=== PATIENT | female | born 1995 | race Caucasian/White ===

== ENCOUNTER 2019-11-19 00:49 | Inpatient (IN) ==
[2019-11-19] MEDS ORDERED: Lidocaine 1% 20 ML MDV ONE (01:00)
[2019-11-19] MEDS ORDERED: Acetaminophen 325 MG TABLET PO PRN (01:10)
[2019-11-19] MEDS ORDERED: Lidocaine/EPI 1:200k 1% PF 10 ML VIAL INFILT ONE (01:10)
[2019-11-19] MEDS ORDERED: Benzocaine/Menthol 56 GM AEROSOL SPRAY TP PRN (01:10)
[2019-11-19] MEDS ORDERED: *HR* Oxytocin 10 UNIT/ML VIAL IM ONE ×2 (01:10→13:22)
[2019-11-19 04:05] LABS: Amphetamine Screen,Urine Negative ng/mL (Cutoff=1000); Barbiturate Screen,Urine Negative ng/mL (Cutoff=200); Benzodiazepines Screen,Urine Negative ng/mL (Cutoff=200); Cannabinoid Screen,Urine Negative ng/mL (Cutoff = 50); Cocaine Screen,Urine Negative ng/mL (Cutoff= 300); Opiate Screen,Urine Negative ng/mL (Cutoff=300); Phencyclidine Screen,Urine Negative ng/mL (Cutoff=25)
[2019-11-19] MEDS: Ibuprofen 600 MG TABLET PO PRN ×2 (06:16→21:47)
[2019-11-19] MEDS: Prenatal Vit/FA 1 EACH TABLET PO SCH (08:18)
[2019-11-20 08:01] VITALS: BP 115/80
[2019-11-20 09:03] LABS: Basophils # 0.1 K/mcL (0.0-0.2); Basophils % 0.7 %; Eosinophils # 0.3 K/mcL (0.0-0.6); Eosinophils % 2.9 %; Hematocrit 32.7 % (35.3-44.9); Hemoglobin 10.5 g/dL (11.5-15.4); Lymphocytes # 1.8 K/mcL (0.6-4.6); Lymphocytes % 17.2 %; Mean Corpuscular HGB Conc 32.1 g/dL (31.6-35.5); Mean Corpuscular Hemoglobin 27.8 pg (28.0-33.3); Mean Corpuscular Volume 86.5 fL (83.0-100.0); Mean Platelet Volume 9.9 fL (9.4-12.4); Monocytes # 0.7 K/mcL (0.0-1.3); Monocytes % 6.7 %; Neutrophils # 7.7 K/mcL (1.6-8.9); Platelet Count 177 K/mcL (140-400); Red Blood Count 3.78 M/mcL (3.82-4.97); Segmented Neutrophils % 71.5 %; White Blood Count 10.7 K/mcL (4.3-11.1)
[2019-11-20] MEDS: Prenatal Vit/FA 1 EACH TABLET PO SCH (09:33)
[2019-11-20] MEDS: Ibuprofen 600 MG TABLET PO PRN (09:33)
== END 2019-11-20 11:55 | disposition home or self-care (01) ==
LOC: 1NENULAB → OBSVTOIN 00:49 → 1NENUOBS 04:03
PROVIDERS: ADMIT Registered Nurse; ATTEND Registered Nurse

== ENCOUNTER 2021-07-17 09:38 | Inpatient (IN) ==
[2021-07-17] MEDS ORDERED: Oxytocin 20 units/ LR 1000 mL 20 UNIT/1,000 ML BAG IVC ONE (09:39)
[2021-07-17 10:21] LABS: Basophils # 0.1 K/mcL (0.0-0.2); Basophils % 0.6 %; Eosinophils # 0.1 K/mcL (0.0-0.6); Eosinophils % 0.4 %; Hematocrit 38.1 % (35.3-44.9); Hemoglobin 12.4 g/dL (11.5-15.4); Immature Granulocytes % 1.1 % (0-4); Lymphocytes # 1.9 K/mcL (0.6-4.6); Lymphocytes % 15.5 %; Mean Corpuscular HGB Conc 32.5 g/dL (31.6-35.5); Mean Corpuscular Hemoglobin 27.9 pg (28.0-33.3); Mean Corpuscular Volume 85.6 fL (83.0-100.0); Monocytes # 0.7 K/mcL (0.0-1.3); Neutrophils # 9.5 K/mcL (1.6-8.9); Platelet Count 202 K/mcL (140-400); Red Blood Count 4.45 M/mcL (3.82-4.97); Red Cell Distribution Width 14.8 % (11.5-14.5); Segmented Neutrophils % 76.4 %; White Blood Count 12.4 K/mcL (4.3-11.1)
[2021-07-17 10:57] LABS: Influenza A PCR Negative (Negative); Influenza B PCR Negative (Negative); Resp. Syncytial Virus PCR Negative (Negative)
[2021-07-17] MEDS ORDERED: Benzocaine/Menthol 56 GM AEROSOL SPRAY TP PRN (11:01)
[2021-07-17] MEDS ORDERED: Lanolin 7 G OINT...G. TP PRN (11:01)
[2021-07-17] MEDS ORDERED: Ondansetron ODT 4 MG TAB.RAPDIS SL PRN (11:01)
[2021-07-17] MEDS ORDERED: Oxytocin 20 units/ LR 1000 mL 20 UNIT/1,000 ML BAG IVC SCH (11:15)
[2021-07-17 11:19] LABS: SARS-CoV-2 by PCR (In House) Negative (Negative)
[2021-07-17] MEDS: Acetaminophen 325 MG TABLET PO SCH ×2 (11:24→23:20)
[2021-07-17] MEDS: Ibuprofen 600 MG TABLET PO SCH ×2 (15:36→23:19)
[2021-07-18] MEDS: Acetaminophen 325 MG TABLET PO SCH (05:20)
[2021-07-18] MEDS: Ibuprofen 600 MG TABLET PO SCH (05:20)
[2021-07-18] MEDS ORDERED: Prenatal Vit/FA 1 EACH TABLET PO SCH (09:00)
[2021-07-18 09:07] VITALS: BP 106/71; PULSE 73; TEMP 97.8; O2SAT 97
== END 2021-07-18 11:10 | disposition home or self-care (01) | DRG 807 ==
LOC: 1NENULAB 09:38 → 1NENUOBS 12:14
PROVIDERS: ADMIT Registered Nurse; ATTEND Registered Nurse